=== PATIENT | male | born 1940 | race Caucasian/White ===

== ENCOUNTER 2017-09-23 10:12 | Outpatient (CLI) | payer MEDICARE, OTHER ==
--- NOTE | 2017-09-23 10:36 | RAD ---
TWO VIEWS CHEST: Comparison: 08-30-16 History: Dyspnea. FINDINGS: Slight elongation of the aorta. Normal cardiac silhouette. The pulmonary vessels and hilum are normal . No consolidation or mass. No pneumothorax or osseous abnormalities. IMPRESSION: No acute cardiopulmonary process POS: [id number]
== END 2017-09-23 10:13 | disposition home or self-care (01) ==
LOC: RAD 10:12
PROVIDERS: ATTEND Internal Medicine Critical Care Medicine
DX: R06.00 Dyspnea, unspecified (principal)
CPT/HCPCS: 71046

== ENCOUNTER 2019-04-21 19:52 | Emergency (ER) | payer MEDICARE, OTHER ==
[2019-04-21] MEDS ORDERED: Meclizine HCl 25 MG TAB ONE (20:50)
== END 2019-04-21 21:49 | disposition home or self-care (01) ==
LOC: ERS 19:52
DX: R42 Dizziness and giddiness (principal); E78.00 Pure hypercholesterolemia, unspecified; F32.9 Major depressive disorder, single episode, unspecified; Z79.899 Other long term (current) drug therapy
CPT/HCPCS: 93005; J8597